=== PATIENT | female | born 1970 | race Caucasian/White ===

== ENCOUNTER 2016-06-26 07:41 | Day surgery (SDC) | payer MEDICARE ==
[2016-06-26] MEDS ORDERED: Sensorcaine 0.25% 10 ML IJ ONE (08:00)
[2016-06-26] MEDS ORDERED: Depo-Medrol 80 MG/ML IM ONE (08:00)
[2016-06-26] MEDS ORDERED: Sodium Chloride 0.9(Preservative Free) 10 ML IJ ONE (08:00)
[2016-06-26] MEDS ORDERED: DIPRIVAN 200 MG/20 ML IV ONE (09:00)
[2016-06-26] MEDS ORDERED: KEFZOL 1 GM IJ ONE (09:00)
[2016-06-26] MEDS ORDERED: Lactated Ringers 1,000 ML IV ONE (09:57)
[2016-06-26] MEDS ORDERED: Lactated Ringers 1,000 ML IV SCH (10:00)
[2016-06-26] MEDS ORDERED: Pepcid 20 MG VIAL IV ONE (10:21)
[2016-06-26 10:39] VITALS: BP 108/43; PULSE 76; O2SAT 99
--- NOTE | 2016-06-26 12:27 | XRAY ---
Indication: Caudal STEVE. Intraoperative fluoroscopy was provided for 33 seconds. 2 digital spot images submitted for interpretation demonstrates a single posterior midline spinal needle with the tip projecting mid sacrum level. Correlate with intraoperative findings/report.
--- NOTE | 2016-06-26 13:33 | XRAY ---
33 seconds fluoro time in surgery for caudal STEVE.
== END 2016-06-26 12:24 | disposition home or self-care (01) ==
LOC: SDC-PAIN 07:41
PROVIDERS: ATTEND Pain Medicine Interventional Pain Medicine
DX: M54.5 Low back pain (principal); M54.6 Pain in thoracic spine; M48.06 Spinal stenosis, lumbar region
CPT/HCPCS: 01992; 62323; 72100; 77003; J0690; J1040; J2704; Q9967